=== PATIENT | female | born 1970 | race Caucasian/White ===

== ENCOUNTER 2017-04-22 08:36 | Emergency (ER) | payer SELFPAY ==
[2017-04-22 08:48] VITALS: BP 114/67
--- NOTE | 2017-04-22 09:29 | UC ---
pantera Hand Timothy, scribed for Eliceo Lake MD on 04/22/17 at 0908 . General HPI - HPI Summary HPI Summary: Suki Wise is a 47 yo female presenting to [facility] with 7/10 left ear pain and clear drainage since 04/19/17, and swelling of the left ear since 04/20/17 gradually spreading to the left side of her face and scalp. She also c/o of burning and itching throughout her entire body, radiating into her left shoulder beginning last night. She also notes fatigue of the lower extremities since last night. She also c/o mild sore throat. 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 She denies SOB, respiratory distress, CP. She self-medicated with 2 benadryl last night. Her MHx includes thyroid disease, non-cardiac intermittent CP, ankle edema, fibromyalgia, squamous cell carcinoma, x2, hysterectomy, cholecystectomy, IGA hydronephropathy, Darier's disease, tobacco use. Her PCP is Dr. Ruiz. - History of Current Complaint Stated Complaint: FACIAL SWELLING Time Seen by Provider: 04/22/17 09:10 Hx Obtained From: Patient Onset/Duration: Gradual Onset, Lasting Days, Still Present Timing: Constant Onset Severity: Moderate Current Severity: Moderate Pain Intensity: 7 - /10 Pain Location at: left ear, face, diffuse Pain Radiates to: left shoulder Character: burning, ache Associated Signs & Symptoms: Positive: Other - left ear pain/swelling, facial swelling, diffuse burning and pruritus - Allergy/Home Medications Allergies/Adverse Reactions: Allergies Allergy/AdvReac Type Severity Reaction Status Date / Time Codeine Allergy Severe Anaphylatic Verified 04/22/17 08:49 Shock Morphine Allergy Severe Anaphylatic Verified 04/22/17 08:49 Shock Cephalexin Allergy Intermediate Swelling Verified 04/22/17 08:49 Of Face,Lips,& Throat Losartan [From Cozaar] Allergy Intermediate Hives Verified 04/22/17 08:49 Hydrocodone Allergy Unknown Verified 04/22/17 08:49 Reaction Details Home Medications: Home Medications Diphenhydramine HCl [Benadryl Allergy 25 MG CAP] 2 tab PO Q6HR PRN 04/22/17 [ History Confirmed 04/22/17] Lorazepam [Ativan 1 MG TAB] 1 tab PO DAILY PRN 04/22/17 [History Confirmed 04/22] Temazepam [Restoril] 1 tab PO BEDTIME PRN 04/22/17 [History Confirmed 04/22/17] PMH/Surg Hx/FS Hx/Imm Hx Endocrine History: Thyroid Disease, Other Other Endocrine History: fibromyalgia Cardiovascular History: Other Other Cardiovascular History: intermittent CP GI/ History: Other Other GI/ History: IGA hydronephropathy Cancer History: Other Other Cancer History: squamous cell carcinoma - Surgical History Surgical History: Yes Surgery Procedure, Year, and Place: Hysterectomy 2000. c-sections x2 (1992,1997 ). cholycystectomy 2000 - Family History Known Family History: Positive: Cardiac Disease - mother - heart murmur, Hypertension, Diabetes, Other - Darier's disease - Social History Alcohol Use: Occasionally Alcohol Amount: 1 glass wine q monthly Substance Use Type: None Smoking Status (MU): Heavy Every Day Tobacco Smoker Amount Used/How Often: 1/2 ppd Length of Time of Smoking/Using Tobacco: 10 years Have You Smoked in the Last Year: Yes Household Exposure Type: Cigarettes - Immunization History Most Recent Influenza Vaccination: not utd Most Recent Tetanus Shot: unsure Most Recent Pneumonia Vaccination: none Review of Systems Constitutional: Fatigue - of lower extremities Skin: Other - left ear, left facial swelling. Diffuse burning and pruritus through entire body Eyes: Negative ENT: Sore Throat, Ear Ache - left, with clear drainage Respiratory: Negative Cardiovascular: Negative Gastrointestinal: Negative Genitourinary: Negative Motor: Negative Neurovascular: Negative Musculoskeletal: Negative Neurological: Negative Psychological: Negative All Other Systems Reviewed And Are Negative: Yes Physical Exam Triage Information Reviewed: Yes Vital Signs: Initial Vital Signs Temp 98.7 F 04/22/17 08:40 Pulse 74 04/22/17 08:40 Resp 14 04/22/17 08:40 BP 114/67 04/22/17 08:40 Pulse Ox 99 04/22/17 08:40 Vital Signs Reviewed: Yes ENT: Positive: Hearing grossly normal, Pharynx normal, TMs normal, Other: - left external canal with edema and eyrthema with some white exudate.. Negative : Pharyngeal erythema, Nasal congestion Neck: Positive: Tenderness @ - preauricular lymph node tenderness and posterior auricular node tenderness. Respiratory: Positive: Lungs clear, Normal breath sounds, Other: - normal effort Cardiovascular: Positive: RRR, No Murmur, Brisk Capillary Refill Musculoskeletal: Positive: Strength Intact, ROM Intact, No Edema Neurological: Positive: Alert, Muscle Tone Normal, Other: - gait normal, CN 2- 12 grossly intact, strength 5/5 throughout, sensory grossly intact. Psychological: Positive: Normal Response To Family Skin: Positive: Other - chronic skin changes bilateral lower extremities. Otherwise no acute rash noted. Course/Dx - Course Course Of Treatment: Suki Wise is a 47 yo female presenting to [facility] with 7 /10 left ear pain since 04/19/17, with swelling since 04/20/17, and burning/ itching throughout her body since 04/21/17 last night. Advised Pt to follow up with primary care physiican regarding her chronic conditions. After clinical examination she will be discahrged home with left otitis externa with appropriate instructions and follow up. - Differential Dx - Multi-Symptom Provider Diagnoses: left otitis externa Discharge - Discharge Plan Condition: Stable Disposition: HOME Prescriptions: Ciproflox/Dexameth OTIC.SUSP* [Ciprodex OTIC.SUSP*] 4 drop LEFT EAR BID #1 btl Patient Education Materials: Otitis Externa (ED) Referrals: Hemal Ruiz MD [Primary Care Provider] - 2 Days Additional Instructions: Please follow up with your primary care physician regarding your visit to urgent care today. Return to urgent care or the emergency department with any new or recurring symptoms. The documentation as recorded by the pantera manzano Timothy accurately reflects the service I personally performed and the decisions made by , Eliceo Lake MD.
== END 2017-04-22 09:30 | disposition home or self-care (01) ==
LOC: UCEAST 08:36
DX: H60.92 Unspecified otitis externa, left ear (principal); Z72.0 Tobacco use; E07.9 Disorder of thyroid, unspecified; R07.89 Other chest pain; M79.7 Fibromyalgia; N02.8 Recurrent and persistent hematuria with other morphologic changes; Z85.9 Personal history of malignant neoplasm, unspecified
CPT/HCPCS: 99212; G0463

== ENCOUNTER → 2017-07-28 12:33 | Emergency (ER) | payer SELFPAY ==
[~2017-07-28 12:33] MED LIST: Acetaminophen TAB* 325 MG PO ONE; Iohexol 350* (CONTRAST) 500 ML MDV IV ONE; NS 0.9% 1000 ML* 1,000 ML IV ONE; Ondansetron INJ* 2 MG/ML VIAL IV ONE; Pantoprazole IV* 40 MG IV ONE
[2017-07-28 13:48] LABS: Hematocrit 40 % (35-47); Hemoglobin 13.7 g/dl (12.0-16.0); Mean Corpuscular HGB Conc 34 g/dl (31-36); Mean Corpuscular Hemoglobin 31 pg (27-31); Mean Corpuscular Volume 92 fL (80-97); Mean Platelet Volume 8 um3 (7.4-10.4); Red Blood Count 4.37 10^6/ul (4.0-5.4); Red Cell Distribution Width 13 % (10.5-15); White Blood Count 7.4 10^3/ul (3.5-10.8)
[2017-07-28 14:04] LABS: ALT 10 U/L (7-52); AST 15 U/L (13-39); Albumin 4.1 g/dL (3.2-5.2); Alkaline Phosphatase 37 U/L (34-104); Anion Gap 6 mmol/L (2-11); BUN/Creatinine Ratio 9.6 (8-20); Blood Urea Nitrogen 8 mg/dL (6-24); C Reactive Protein < 1.00 mg/L (< 5.00); CO2 Carbon Dioxide 26 mmol/L (22-32); Calcium 9.2 mg/dL (8.6-10.3); Chloride 106 mmol/L (101-111); EGFR African American 95.6 (>60); EGFR Non-African American 74.3 (>60); Globulin 2.8 g/dL (2-4); Glucose 87 mg/dL (70-100); Lipase 23 U/L (11.0-82.0); Potassium 4.1 mmol/L (3.5-5.0); Sodium 138 mmol/L (133-145); Total Protein 6.9 g/dL (6.4-8.9)
[2017-07-28 14:06] LABS: Troponin I 0.01 ng/mL (<0.04)
[2017-07-28 14:23] LABS: Urine Bacteria Absent (Absent); Urine Bilirubin Negative (Negative); Urine Glucose Negative (Negative); Urine Nitrite Negative (Negative)
--- NOTE | 2017-07-28 16:19 | RAD ---
INDICATION: Heartburn, weakness. Post hysterectomy and cholecystectomy. COMPARISON: March 22, 2014 CT chest and April 07, 2014 CT abdomen. TECHNIQUE: Multidetector CT images were obtained from the lung apices to the ischial tuberosities with 100 mL Omnipaque 350 IV contrast. Aorta angiogram protocol. Multiplanar maximum intensity projection and routine multiplanar reformatted images as well as 3-D arterial volume rendering. CHEST REPORT: Moderately severe upper lung zone emphysema. Minimal bibasilar dependent atelectasis. Negative for pleural effusion or pneumothorax. Negative for thoracic lymphadenopathy, cardiomegaly, pericardial effusion. Normal diameter thoracic aorta. Minimal noncalcific atherosclerotic plaque at the distal arch and descending segments. Negative for dissection of the thoracic aorta. Normal variant direct origin of the LEFT vertebral artery from the aortic arch. Negative for thoracic fracture or suspicious focal osseous lesions. Minimal multilevel thoracic degenerative spondylosis. CHEST IMPRESSION: 1. Negative for aneurysm or dissection of the thoracic aorta. Only minimal noncalcific atherosclerotic plaque evident. 2. Moderately severe emphysema. No suspicious focal pulmonary lesions or inflammatory infiltrate evident. ABDOMEN PELVIS REPORT: Arterial phase only series limits assessment of the viscera. No abnormality of the liver. Upper normal bile duct diameter within normal limits given prior cholecystectomy. Unremarkable pancreas and spleen. Small hiatal hernia. Negative for CT abnormality of the small bowel. Unremarkable retrocecal appendix. Negative for CT abnormality of the colon. Negative for ascites, free air, or significant hernias. Normal adrenal glands. Symmetric arterial phase enhancement of the kidneys. Negative for focal renal lesions or hydronephrosis. Unremarkable nondilated ureters and partially distended urinary bladder. Post hysterectomy. Unremarkable adnexal regions. Negative for lymphadenopathy. Normal diameter abdominal aorta and iliac arteries with only minimal atherosclerotic plaque at the infrarenal abdominal aorta and RIGHT common iliac artery. Negative for arterial dissection. Unremarkable celiac axis, superior mesenteric artery, and inferior mesenteric artery. Unremarkable bilateral solitary renal arteries. Negative for fracture or suspicious focal osseous lesion of the lumbar sacral spine, pelvis, or proximal femurs. Minimal lumbar sacral spine degenerative spondylosis. ABDOMEN PELVIS IMPRESSION: 1. Negative for aneurysm or dissection of the abdominal aorta. 2. Small hiatal hernia. No acute abnormality of the alimentary tract evident. 3. Negative for obstructive uropathy.
--- NOTE | 2017-07-28 17:03 | ED ---
Paulina Hand Abhishek, scribed for Kavita Tavera MD on 07/28/17 at 1321 . GI/ HPI - HPI Summary HPI Summary: This patient is a 47 year old F presenting to [facility] accompanied by with a chief complaint of GERD since Saturday (07/24). The CC is described as burning and radiating to the back since last night, constant. The patient rates the pain 5/10 in severity. Symptoms aggravated by lying down. Symptoms alleviated by nothing. Patient reports numbness (all extremities), weakness s/p taking medication, as well as leg pain (cramping). Pt states she has had bad heart burn. - History of Current Complaint Chief Complaint: EDGeneral Time Seen by Provider: 07/28/17 13:09 Stated Complaint: HEARTBURN/WEAKNESS Hx Obtained From: Patient Onset/Duration: Started Days Ago - Saturday Timing: Constant Severity: Moderate Current Severity: Moderate Pain Intensity: 5 Pain Radiates to: Back - since last night; constant Associated Signs and Symptoms: Positive: Weakness - s/p taking medication, Other : - numbness, leg pain ("cramping") Aggravating Factor(s): Activity - Lying down Alleviating Factor(s): Nothing - Allergy/Home Medications Allergies/Adverse Reactions: Allergies Allergy/AdvReac Type Severity Reaction Status Date / Time Codeine Allergy Severe Anaphylatic Verified 07/28/17 13:11 Shock Morphine Allergy Severe Anaphylatic Verified 07/28/17 13:11 Shock Cephalexin Allergy Intermediate Swelling Verified 07/28/17 13:11 Of Face,Lips,& Throat Losartan [From Cozaar] Allergy Intermediate Hives Verified 07/28/17 13:11 Hydrocodone Allergy Unknown Verified 07/28/17 13:11 Reaction Details PMH/Surg Hx/FS Hx/Imm Hx Endocrine/Hematology History: Reports: Hx Thyroid Disease Denies: Hx Diabetes Cardiovascular History: Denies: Hx Hypertension Respiratory History: Denies: Hx Asthma, Hx Chronic Obstructive Pulmonary Disease (COPD) GI History: Reports: Other GI Disorders - see above Denies: Hx Ulcer History: Reports: Hx Renal Disease - Iga nephropathy, Other Problems/ Disorders - IgA HYDRONEPHOPATHY Musculoskeletal History: Reports: Other Musculoskeletal History - fibromyalgia - Cancer History Cancer Type, Location and Year: Squamous cell carcinoma surically removed Hx Chemotherapy: No Hx Radiation Therapy: No - Surgical History Surgery Procedure, Year, and Place: Hysterectomy 2000. c-sections x2 (1992,1997 ). cholycystectomy 2000 Infectious Disease History: No Infectious Disease History: Denies: Hx Clostridium Difficile, Hx Hepatitis, Hx Human Immunodeficiency Virus (HIV), Hx of Known/Suspected MRSA, Hx Shingles, Hx Tuberculosis, Hx Known/ Suspected VRE, Hx Known/Suspected VRSA, History Other Infectious Disease, Traveled Outside the [place] in Last 30 Days - Family History Known Family History: Positive: Cardiac Disease - mother - heart murmur, Hypertension, Diabetes, Other - Darier's disease - Social History Lives: With Family Alcohol Use: Occasionally Alcohol Amount: 1 glass wine q monthly Substance Use Type: Reports: None Smoking Status (MU): Heavy Every Day Tobacco Smoker Amount Used/How Often: 1/2 ppd Length of Time of Smoking/Using Tobacco: 10 years Have You Smoked in the Last Year: Yes Review of Systems Constitutional: Negative Eyes: Negative ENT: Negative Cardiovascular: Negative Respiratory: Negative Positive: Other - pt states she has had "bad heart burn." Genitourinary: Negative Positive: Other - leg pain ("cramping") Skin: Negative Positive: Weakness - s/p medications, Numbness - all extremities Psychological: Normal All Other Systems Reviewed And Are Negative: Yes Physical Exam - Summary Physical Exam Summary: General: Well appearing, no pain distress Skin: Warm, Skin Color Reflects Adequate Perfusion, Dry Eyes: EOMI, LORENA ENT: Pharynx normal, TMs normal Neck: Supple, nontender Respiratory: CTA, breath sounds present, no rhonchi, no wheezes, no rales Cardiovascular: RRR, no murmur, no rub, no gallop Abdomen: Epigastric discomfort/tenderness Bowel: Present Musculoskeletal: BERNAROD, No edema Neuro: Sensory/motor intact, A&Ox3, CN intact 2-12 Psych: Affect/mood appropriate Triage Information Reviewed: Yes Vital Signs On Initial Exam: Initial Vitals Temp Pulse Resp BP Pulse Ox 99.0 F 63 15 110/66 99 07/28/17 12:46 07/28/17 12:46 07/28/17 12:46 07/28/17 12:46 07/28/17 12:46 Vital Signs Reviewed: Yes - Carlos Enrique Coma Scale Coma Scale Total: 15 Diagnostics - Vital Signs Vital Signs Temp Pulse Resp BP Pulse Ox 07/28/17 12:46 99.0 F 63 15 110/66 99 - Laboratory Lab Results: Lab Results 07/28/17 07/28/17 07/28/17 Range/Units 13:40 13:40 13:40 WBC 7.4 (3.5-10.8) 10^3/ul RBC 4.37 (4.0-5.4) 10^6/ul Hgb 13.7 (12.0-16.0) g/dl Hct 40 (35-47) % MCV 92 (80-97) fL MCH 31 (27-31) pg MCHC 34 (31-36) g/dl RDW 13 (10.5-15) % Plt Count 167 (150-450) 10^3/ul MPV 8 (7.4-10.4) um3 Neut % (Auto) 65.3 (38-83) % Lymph % (Auto) 24.6 L (25-47) % Ward % (Auto) 6.6 (1-9) % Eos % (Auto) 2.5 (0-6) % Baso % (Auto) 1.0 (0-2) % Absolute Neuts (auto) 4.8 (1.5-7.7) 10^3/ul Absolute Lymphs (auto) 1.8 (1.0-4.8) 10^3/ul Absolute Monos (auto) 0.5 (0-0.8) 10^3/ul Absolute Eos (auto) 0.2 (0-0.6) 10^3/ul Absolute Basos (auto) 0.1 (0-0.2) 10^3/ul Absolute Nucleated RBC 0 10^3/ul Nucleated RBC % 0 Sodium 138 (133-145) mmol/L Potassium 4.1 (3.5-5.0) mmol/L Chloride 106 (101-111) mmol/L Carbon Dioxide 26 (22-32) mmol/L Anion Gap 6 (2-11) mmol/L BUN 8 (6-24) mg/dL Creatinine 0.83 (0.51-0.95) mg/dL Est GFR ( Amer) 95.6 (>60) Est GFR (Non-Af Amer) 74.3 (>60) BUN/Creatinine Ratio 9.6 (8-20) Glucose 87 (70-100) mg/dL Lactic Acid 0.7 (0.5-2.0) mmol/L Calcium 9.2 (8.6-10.3) mg/dL Total Bilirubin 0.60 (0.2-1.0) mg/dL AST 15 (13-39) U/L ALT 10 (7-52) U/L Alkaline Phosphatase 37 (34-104) U/L Troponin I 0.01 (<0.04) ng/mL C-Reactive Protein < 1.00 (< 5.00) mg/L Total Protein 6.9 (6.4-8.9) g/dL Albumin 4.1 (3.2-5.2) g/dL Globulin 2.8 (2-4) g/dL Albumin/Globulin Ratio 1.5 (1-3) Lipase 23 (11.0-82.0) U/L Beta HCG, Quant 2.70 mIU/mL Urine Color Urine Appearance Urine pH (5-9) Ur Specific [place] (1.010-1.030) Urine Protein (Negative) Urine Ketones (Negative) Urine Blood (Negative) Urine Nitrate (Negative) Urine Bilirubin (Negative) Urine Urobilinogen (Negative) Ur Leukocyte Esterase (Negative) Urine WBC (Auto) (Absent) Urine RBC (Auto) (Absent) Ur Squamous Epith Cells (Absent) Urine Bacteria (Absent) Urine Glucose (Negative) 07/28/17 Range/Units 14:06 WBC (3.5-10.8) 10^3/ul RBC (4.0-5.4) 10^6/ul Hgb (12.0-16.0) g/dl Hct (35-47) % MCV (80-97) fL MCH (27-31) pg MCHC (31-36) g/dl RDW (10.5-15) % Plt Count (150-450) 10^3/ul MPV (7.4-10.4) um3 Neut % (Auto) (38-83) % Lymph % (Auto) (25-47) % Ward % (Auto) (1-9) % Eos % (Auto) (0-6) % Baso % (Auto) (0-2) % Absolute Neuts (auto) (1.5-7.7) 10^3/ul Absolute Lymphs (auto) (1.0-4.8) 10^3/ul Absolute Monos (auto) (0-0.8) 10^3/ul Absolute Eos (auto) (0-0.6) 10^3/ul Absolute Basos (auto) (0-0.2) 10^3/ul Absolute Nucleated RBC 10^3/ul Nucleated RBC % Sodium (133-145) mmol/L Potassium (3.5-5.0) mmol/L Chloride (101-111) mmol/L Carbon Dioxide (22-32) mmol/L Anion Gap (2-11) mmol/L BUN (6-24) mg/dL Creatinine (0.51-0.95) mg/dL Est GFR ( Amer) (>60) Est GFR (Non-Af Amer) (>60) BUN/Creatinine Ratio (8-20) Glucose (70-100) mg/dL Lactic Acid (0.5-2.0) mmol/L Calcium (8.6-10.3) mg/dL Total Bilirubin (0.2-1.0) mg/dL AST (13-39) U/L ALT (7-52) U/L Alkaline Phosphatase (34-104) U/L Troponin I (<0.04) ng/mL C-Reactive Protein (< 5.00) mg/L Total Protein (6.4-8.9) g/dL Albumin (3.2-5.2) g/dL Globulin (2-4) g/dL Albumin/Globulin Ratio (1-3) Lipase (11.0-82.0) U/L Beta HCG, Quant mIU/mL Urine Color Yellow Urine Appearance Cloudy Urine pH 7.0 (5-9) Ur Specific [place] 1.008 L (1.010-1.030) Urine Protein Negative (Negative) Urine Ketones Negative (Negative) Urine Blood 1+ H (Negative) Urine Nitrate Negative (Negative) Urine Bilirubin Negative (Negative) Urine Urobilinogen Negative (Negative) Ur Leukocyte Esterase Negative (Negative) Urine WBC (Auto) Trace(0-5/hpf) (Absent) Urine RBC (Auto) Trace(0-2/hpf) (Absent) Ur Squamous Epith Cells Present H (Absent) Urine Bacteria Absent (Absent) Urine Glucose Negative (Negative) Result Diagrams: 07/28/17 13:40 07/28/17 13:40 Lab Statement: Any lab studies that have been ordered have been reviewed, and results considered in the medical decision making process. - CT Chest/Abdomen/Pelvis CT CT Interpretation Completed By: Radiologist - (Chest) 1. Negative for aneurysm or dissection of the abdominal aorta. 2. Small hiatal hernia. No acute abnormality of the alimentary tract evident. 3. Negative for obstructive uropathy. (Abd/Pelvis) 1. Negative for aneurysm or dissection of the thoracic aorta. Only minimal noncalcific atherosclerotic plaque evident. 2. Moderately severe emphysema. No suspicious focal pulmonary lesions or inflammatory infiltrate evident. ED physician has reviewed this radiology report and agrees. - EKG 1255 Cardiac Rate: NL EKG Interpretation: No ST elevation, no Q waves GIGU Course/Dx - Course Course Of Treatment: long discussion with this pt with gerd with back pain cta done to r/o dissection and ekg and trop both normal. cta showed mod to severe copd which was relayed to pt. Pt has already started herself on prilosec, will add carafate, and ativan (she cant take opiates- due to sensitivity) - Diagnoses Provider Diagnoses: COPD (chronic obstructive pulmonary disease), Esophagitis Discharge - Discharge Plan Condition: Stable Disposition: HOME Prescriptions: LORazepam TAB(*) [Ativan 1 MG TAB (*)] 1 mg PO Q4H PRN #18 tab MDD 6 PRN Reason: Pain Sucralfate SUSP (NF) [Carafate SUSP (NF)] 10 ml PO Q6HR #1 bottle The documentation as recorded by the Paulina manzano Abhishek accurately reflects the service I personally performed and the decisions made by me, Kavita Tavera MD.
[2017-07-28 18:51] VITALS: BP 102/50
== END | disposition home or self-care (01) ==
LOC: ED 12:33
DX: J44.9 Chronic obstructive pulmonary disease, unspecified (principal); K20.9 Esophagitis, unspecified; R53.1 Weakness
CPT/HCPCS: 36415; 71275; 74174; 80053; 81003; 81015; 83605; 83690; 84484; 84702; 85025; 86140; 93005; 99282; A9270-GY; J2405; Q9967

== ENCOUNTER 2018-11-20 10:29 | Emergency (ER) | payer BC ==
[2018-11-20] MEDS ORDERED: Acetaminophen TAB* 325 MG PO ONE (10:38)
[2018-11-20] MEDS ORDERED: Cyclobenzaprine TAB* 10 MG PO ONE (10:38)
--- NOTE | 2018-11-20 11:08 | ED ---
Upper Extremity Pain - HPI Summary HPI Summary: Pt is a 48 y/o female brought in by EMS who presents to the ED c/o CP. She was sent over from [facility], [place] for a cardiac workup, where she was given 4 ASA. An EKG done by EMS revealed negative STEMI. Pt has had left shoulder pain that radiates to her left anterior chest, left neck, and left axilla for the past week. The pain is currently rated an 8/10 in severity, and is made worse with coughing and movement. Pt notes that she lifts her arms up a lot at work, and believes she may have pulled a muscle. She denies any recent injury to the area. Pt also notes a dry cough beginning today and dizziness, but denies any SOB. Pt is a smoker. She has been applying IcyHot to the area without relief. She cannot take NSAIDs because of her IgA nephropathy. - History of Current Complaint Stated Complaint: CHEST PAIN Time Seen by Provider: 11/20/18 10:30 Hx Obtained From: Patient, EMS Hx Last Menstrual Period: 1999 Mechanism Of Injury: Other - possibly pulled muscle Onset/Duration: Started Weeks Ago - 1, Still Present Timing: Constant Severity Currently: Severe - 8?10 Pain Location: Shoulder - left, Other: - left chest, left neck, left armpit Aggravating Factor(s): Movement, Lifting, Other - coughing Alleviating Factor(s): Nothing Associated Signs & Symptoms: Positive: Chest Pain, Neck Pain. Negative: SOB Related History: Occupational Injury - possible - Allergies/Home Medications Allergies/Adverse Reactions: Allergies Allergy/AdvReac Type Severity Reaction Status Date / Time cephalexin Allergy Swelling Verified 11/20/18 11:01 Of Face,Lips,& Throat codeine Allergy Anaphylatic Verified 11/20/18 11:01 Shock hydrocodone Allergy Unknown Verified 11/20/18 11:01 Reaction Details losartan Allergy Hives Verified 11/20/18 11:01 morphine Allergy Anaphylatic Verified 11/20/18 11:01 Shock PMH/Surg Hx/FS Hx/Imm Hx Endocrine/Hematology History: Reports: Hx Thyroid Disease Denies: Hx Diabetes Cardiovascular History: Denies: Hx Hypertension Respiratory History: Denies: Hx Asthma, Hx Chronic Obstructive Pulmonary Disease (COPD) GI History: Denies: Hx Ulcer History: Reports: Hx Renal Disease - Iga nephropathy Musculoskeletal History: Reports: Other Musculoskeletal History - fibromyalgia Psychiatric History: Reports: Hx Anxiety - Cancer History Cancer Type, Location and Year: Squamous cell carcinoma surically removed Hx Chemotherapy: No Hx Radiation Therapy: No - Surgical History Surgery Procedure, Year, and Place: Hysterectomy 2000. c-sections x2 (1992,1997 ). cholycystectomy 2000 Infectious Disease History: No Infectious Disease History: Denies: Hx Clostridium Difficile, Hx Hepatitis, Hx Human Immunodeficiency Virus (HIV), Hx of Known/Suspected MRSA, Hx Shingles, Hx Tuberculosis, Hx Known/ Suspected VRE, Hx Known/Suspected VRSA, History Other Infectious Disease, Traveled Outside the [place] in Last 30 Days - Family History Known Family History: Positive: Cardiac Disease - mother - heart murmur, grandmother - CAD at 70, Hypertension, Diabetes, Other - Darier's disease - Social History Alcohol Use: Occasionally Alcohol Amount: 1 glass wine q monthly Hx Substance Use: No Substance Use Type: Reports: None Hx Tobacco Use: Yes Smoking Status (MU): Heavy Every Day Tobacco Smoker Type: Cigarettes Amount Used/How Often: 1/2 ppd Length of Time of Smoking/Using Tobacco: 10 years Have You Smoked in the Last Year: Yes Review of Systems Positive: Chest Pain Positive: Cough. Negative: Shortness Of Breath Positive: Arthralgia - left shoulder, Myalgia - left neck, left armpit Neurological: Other - Dizziness All Other Systems Reviewed And Are Negative: Yes Physical Exam - Summary Physical Exam Summary: Appearance: Well appearing, no pain distress Skin: warm, dry, reflects adequate perfusion, eczema on hands Head/face: normal Eyes: EOMI, LORENA ENT: mucous membranes moist Neck: supple, non-tender Respiratory: CTA, breath sounds present Cardiovascular: RRR, pulses symmetrical Abdomen: non-tender, soft Bowel Sounds: present Musculoskeletal: strength/ROM intact, tenderness with palpation of anterior- superior left shoulder, anterior left chest wall, and left pectoral muscle, pain with ROM of left shoulder Neuro: normal, sensory motor intact, A&Ox3 Triage Information Reviewed: Yes Vital Signs On Initial Exam: Initial Vitals Temp Pulse Resp BP Pulse Ox 98.3 F 50 17 131/75 100 11/20/18 10:35 11/20/18 10:35 11/20/18 10:35 11/20/18 10:35 11/20/18 10:35 Vital Signs Reviewed: Yes Diagnostics - Vital Signs Vital Signs Temp Pulse Resp BP Pulse Ox 11/20/18 10:45 51 99 11/20/18 10:44 52 121/71 99 11/20/18 10:35 98.3 F 50 17 131/75 100 - Laboratory Lab Statement: Any lab studies that have been ordered have been reviewed, and results considered in the medical decision making process. - Radiology CXR Radiology Interpretation Completed By: Radiologist Summary of Radiographic Findings: NO ACTIVE CARDIOPULMONARY DISEASE. ED physician reviewed radiology report. - EKG 10:49 Cardiac Rate: Bradycardia - 55 bpm EKG Rhythm: Sinus Rhythm ST Segment: Normal Summary of EKG Findings: Nl axis, nl intervals Re-Evaluation - Re-Evaluation First Eval Re-Evaluation Time: 11:44 Change: Improved Comment: Pt feels better. Course/Dx - Course Course Of Treatment: Nurse's notes reviewed. 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 She has discomfort in the anterior, superior shoulder as well as the pectoral region of the left chest and axilla. I'm able to elevate the muscle off the chest wall and palpated with significant tenderness. There is no swelling or bruising. Chest x-ray and EKG are negative. This does not look at all cardiac in nature. She has chronic kidney disease and cannot take NSAIDs. She was given Tylenol, Lidoderm patch with improvement. She'll continue similar outpatient and also was given a referral to physical therapy. - Diagnoses Differential Diagnosis/HQI/PQRI: Positive: Strain, Sprain, Other - Cardiac chest pain, pneumonia, PE Provider Diagnoses: Strain of left pectoralis muscle, Atypical chest pain Discharge - Sign-Out/Discharge Documenting (check all that apply): Patient Departure - Discharge Patient Received Moderate/Deep Sedation with Procedure: No - Discharge Plan Condition: Improved Disposition: HOME Prescriptions: Cyclobenzaprine (NF) [Cyclobenzaprine 5 MG (NF)] 5 mg PO TID PRN #21 tab PRN Reason: muscle pain Patient Education Materials: Chest Pain (ED), Muscle Strain (ED) Forms: *Work Release Referrals: Hemal Ruiz MD [Primary Care Provider] - Additional Instructions: Go and schedule physical therapy at [facility] today. He can use over-the- counter lidocaine patches marketed under the name Salon Pas. These are applied for 12 hours at a time and have to be off for 12 hours before the next is applied. Tylenol for baseline pain. Ice, stretching, range of motion exercises may help. Call today to schedule follow-up with your doctor. Return if worse, difficulty breathing, uncontrolled pain, new symptoms or other concerns. - Billing Disposition and Condition Condition: IMPROVED Disposition: Home - Attestation Statements Document Initiated by Lisae: Yes Documenting Scribe: Deya Adams Provider For Whom Ayden is Documenting (Include Credential): Nelson Bledsoe MD Scribe Attestation: Deya Hand, scribed for Nelson Bledsoe MD on 11/20/18 at 1432. Scribe Documentation Reviewed: Yes Provider Attestation: The documentation as recorded by the Deya manzano accurately reflects the service I personally performed and the decisions made by Nelson chakraborty MD Status of Scribe Document: Viewed
[2018-11-20 11:59] VITALS: BP 126/64
[2018-11-20] MEDS ORDERED: Lidocaine Patch REMOVE* 1 NOTE MISC SCH (21:00)
[2018-11-21] MEDS ORDERED: Lidocaine PATCH 5%* 1 PATCH TRANSDERM ONE (10:40)
== END 2018-11-20 11:58 | disposition home or self-care (01) ==
LOC: ED 10:29
DX: S29.011A Strain of muscle and tendon of front wall of thorax, initial encounter (principal); R07.89 Other chest pain; F17.210 Nicotine dependence, cigarettes, uncomplicated; E07.9 Disorder of thyroid, unspecified; Z09 Encounter for follow-up examination after completed treatment for conditions other than malignant neoplasm; Z88.5 Allergy status to narcotic agent; N02.8 Recurrent and persistent hematuria with other morphologic changes; X58.XXXA Exposure to other specified factors, initial encounter; Y92.9 Unspecified place or not applicable; N18.9 Chronic kidney disease, unspecified
CPT/HCPCS: 71046; 93005; 99282; A9270-GY